=== PATIENT | female | born 1985 | race Caucasian/White ===

== ENCOUNTER 2020-04-09 10:30 | Outpatient (RCR) | payer OTHER, MEDICAID, SELFPAY ==
--- NOTE | 2020-02-20 21:42 | PT.OIE ---
Current Diagnoses Obesity, unspecified (02/20/20) Unspecified urinary incontinence (02/20/20) Visit Care Team Role Provider Type Julio Cesar Barr MD Primary Care Provider Non-Staff Specialty: Family Practice Address: [address] [place], [address] Email: Huma Sandhu MD Attending Provider Non-Staff Referring Provider Specialty: Urology Address: [address] [place], [address] Email: Physical Therapy Initial Evaluation PT-OP-A Visit Information Start: 02/17/20 19:06 Freq: Status: Active Protocol: Document 02/20/20 10:34 LRN (Rec: 02/20/20 11:22 LRN [id number]) Out-Patient Physical Therapy Visit Information Visit Information Visit Type Initial Evaluation Visit Start Time 10:34 Visit Stop Time 11:22 Total Visit Minutes 48 Visit Number 1 Evaluation Information Evaluation Date 02/20/20 Precautions Precautions COPD, asthma, Heart murmurs, 2nd the cervix came out. PT-OP-B Current Condition Start: 02/17/20 19:06 Freq: Status: Active Protocol: Document 02/20/20 10:34 LRN (Rec: 02/20/20 11:22 LRN [id number]) Current Condition History of Current Condition Onset Date 2 yrs ago Current Complaints Damp underwear daily, sometimes feels leak. Mainly with sneeze,cough History of Current Condition Noticed sometimes (few times a month) after urinating she there is a vibrating (pelvic floor) and then urine leakage. She had a pap smear and just with touching the PF she had started leaking. Pt blames partly from being overweight ( BMI is 37, note: >30 is obese) . Pt denies constipation. Developmental History Developmental History 4 children (ages 5, 7, 13, & 15 yr old). Started as an annoyance with coughing and sneezing, then noticed panties were always damp. Treatment Goals Patient/Caregiver Goals Pt goal with therapy is to eliminate urinary leakage, to increase the PF strength, and Independent self care program to progress to full continence if not able to achieve continence within rehab timeframe. Prior Functional Status Baseline Function- ADL's Independent Baseline Function- Mobility Independent Baseline Function- Other Urinary leakage only with coughing or sneezing. Current Functional Impairments (Reported) Functional Limitations- ADL's After voiding, coming to stand , can get loss of urine. Feels vibrating before leaking with sit to stand just after urinating (happens a few times a month). Functional Limitations- Other Leakage all day long. Personal Factors Other Personal Factors That May Effect 5'6, 235# = BMI of 37 (>30 is Therapy/Recovery Obese), Mother of 4 children ages 5 to 15. COPD, asthma, 2nd the cervix came out. PT-OP-C Subjective Start: 02/17/20 19:06 Freq: Status: Active Protocol: Document 02/20/20 10:34 LRN (Rec: 02/20/20 11:22 LRN [id number]) Patient Questionnaires Pelvic Pain and Urgency/Frequency Patient Symptom Scale Pelvic Pain Score 7 PT-OP-I Pelvic Floor Start: 02/17/20 19:06 Freq: Status: Active Protocol: Document 02/20/20 10:34 LRN (Rec: 02/20/20 11:22 LRN [id number]) Pelvic Floor Assessment Urine Leakage Size Large Leakage Cause Cough,Lifting,Sneeze Leaks Per Day Constant Voiding Frequency 5-10 times per day Nocturia 1 time at night Urine Pad Type Panty Liner Prolapse Cystocele Grade 2 Rectocele Grade 2 Prolapse Comments Supine: Light cough does not cause further descent of bladder/bowel. Contraction Ability Voluntary Contraction Moderate Manual Muscle Testing Left 3 Manual Muscle Testing Right 3 Manual Muscle Testing Anterior 1 Manual Muscle Testing Posterior 3 Muscle Endurance (Seconds) 6 Number of Quick Contractions In 10 5 Seconds Comments Pelvic Floor Comments PF contraction, substitutes with TA and mildly hip AD. PT-OP-K Range of Motion Start: 02/17/20 19:06 Freq: Status: Active Protocol: Document 02/20/20 10:34 LRN (Rec: 02/20/20 11:22 LRN [id number]) Lumbar Spine Range of Motion Lumbar Spine Active Degrees Testing Position Standing Flexion 90 Extension 15 Comments Trunk flex is with hip flex 85 deg's, starting position of sacrum is 30 deg's flexion. Trunk ext is 65 deg's, starting position of sacrum is 35 deg's flexion. Hip Goniometric Range of Motion Hip Right Passive Testing Position Supine Straight Leg Raise 90 Internal Rotation 40 External Rotation 75 Left Passive Testing Position Supine Straight Leg Raise 90 Internal Rotation 40 External Rotation 75 PT-OP-M Strength Start: 02/17/20 19:06 Freq: Status: Active Protocol: Document 02/20/20 10:34 LRN (Rec: 02/20/20 20:30 LRN [id number]) Trunk Strength Trunk Manual Muscle Testing Core Stabilization Pt unable to maintain core stability during hip MMT bilaterally. Hip Strength Hip Manual Muscle Testing Right Internal Rotation 3+ Fair+ Comments 5/5 except IR above Left Internal Rotation 3+ Fair+ Comments 5/5 except IR above PT-OP-Q Treatments Start: 02/17/20 19:06 Freq: Status: Active Protocol: Document 02/20/20 10:34 LRN (Rec: 02/20/20 20:30 LRN [id number]) Self-Care/Home Management Treatment Education Other Education Discussed results of evaluation and therapy treatments to come. Discussed unable to treat today due to insurance limits. Activities Self-Care/Home Management Activities Pt issued bladder diary with I /S on how to fill out. Pt issued Kegel handout with I /S to work on aggravators. PT-OP-T Assessment and Plan Start: 02/17/20 19:06 Freq: Status: Active Protocol: Document 02/20/20 10:34 LRN (Rec: 02/20/20 11:22 LRN [id number]) Physical Therapy Assessment Rehab Potential Rehabilitation Potential Good Evaluation Complexity Number of Personal Factors/Comorbidities 3 or More Number of Body Systems Impaired 3 Clinical Presentation at Evaluation Evolving Impairments Impairments Posture,ROM,Strength Goals Four Impairment Poor coordination of breathing with exercise and transfers. Short Term Goal (STG) Pt will be educated and demonstrate in proper diaphragmatic breathing, and with coordination of Roll in/ out exercises for PF strengthening. STG Duration 03/05/20 Assisted Goal (LTG) Pt will demonstrate proper breathing with functional activities (transfers, lifting ). LTG Duration 05/04/20 Three Impairment Poor coordination of PF contraction Short Term Goal (STG) Pt will be able to perform Quick Flick contraction of strength grade 3/5 without substitute muscle contraction (TA, hip AB, gluteals) in order to prevent urinary leakage with sneezing. STG Duration 04/02/20 Assisted Goal (LTG) Pt will be able to perform a Long Hold contraction with a proper PF lift with PF strength of 3/5 to prevent loss of continence with coughing. LTG Duration 05/04/20 Two Impairment Quick Flick PF weakness (3/5) Short Term Goal (STG) Pt will be able to maintain continence during sit to stand transfers. STG Duration 04/02/20 Assisted Goal (LTG) Increase PF strength to 4/5 of Quick Flicks LTG Duration 05/04/20 One Impairment Lacks appropriate self care HEP Assisted Goal (LTG) Independent with an ongoing self care HEP. Pt goal with therapy is to eliminate urinary leakage, to increase the PF strength, and Independent self care program to progress to full continence if not able to achieve continence within rehab timeframe. LTG Duration 05/04/20 Assessment Summary Assessment Pt presents with a cytocele and rectocele that doesn't extend past the hymen in supine. She demonstrates PF weakness and uses her abdominal muscles to assist with PF contraction. She has a history of urethrocele with her 2nd childbirth (13 yrs ago ). With a BMI of 37 (obese) and history of COPD and asthma , it is expected that she may have an extended rehabilitation program. I would recommend a referral be sent for a home PF biofeedback E-Stim unit (Pathway STM 10) to improve awareness of a proper PF contraction and for strengthening. The pt will benefit from skilled physical therapy for PF strengthening, posture training, and LE and core strengthening, ROM exercises (to improve hip IR), pt education, and placement on a self care HEP. Physical Therapy Plan Frequency and Duration Frequency of Treatment 1x/Week Plan of Care Start Date 02/20/20 Plan of Care End Date 05/04/20 Therapeutic Interventions Therapeutic Interventions Home Exercise Program,Joint Mobilizations,Manual Therapy, Neuromuscular Re-education, Patient/Caregiver Education, Self-Care/Home Management,Soft Tissue Mobilization, Therapeutic Exercises Modalities Biofeedback,Electric Stimulation Other Referrals/Consults Referrals/Consults Recommended Referral for a PF biofeedback E-Stim unit (Current Technology, Pathway STM 10) Next Visit Focus/Plan Next Note Type Treatment Note Next Visit Plan Review bladder diary, make recommendations as appropriate . EMG biofeedback assessment and progress to training for proper PF contraction, start breath work training, progression of PF (roll in/ outs) and core strengthening ex's on a wedge. HEP: hip IR stretch, sacral flexion.
--- NOTE | 2020-02-20 21:43 | PT.OPPOC ---
Physical, Occupational & Speech Therapy At [facility] Current Diagnoses Obesity, unspecified (02/20/20) Unspecified urinary incontinence (02/20/20) Visit Care Team Role Provider Type Julio Cesar Barr MD Primary Care Provider Non-Staff Specialty: Family Practice Address: [address] [place], [address] Email: Huma Sandhu MD Attending Provider Non-Staff Referring Provider Specialty: Urology Address: [address] [place], [address] Email: Plan Of Care PT-OP-T Assessment and Plan Start: 02/17/20 19:06 Freq: Status: Active Protocol: Document 02/20/20 10:34 LRN (Rec: 02/20/20 11:22 LRN [id number]) Physical Therapy Assessment Rehab Potential Rehabilitation Potential Good Evaluation Complexity Number of Personal Factors/Comorbidities 3 or More Number of Body Systems Impaired 3 Clinical Presentation at Evaluation Evolving Impairments Impairments Posture,ROM,Strength Goals Four Impairment Poor coordination of breathing with exercise and transfers. Short Term Goal (STG) Pt will be educated and demonstrate in proper diaphragmatic breathing, and with coordination of Roll in/ out exercises for PF strengthening. STG Duration 03/05/20 Skilled Nursing Goal (LTG) Pt will demonstrate proper breathing with functional activities (transfers, lifting ). LTG Duration 05/04/20 Three Impairment Poor coordination of PF contraction Short Term Goal (STG) Pt will be able to perform Quick Flick contraction of strength grade 3/5 without substitute muscle contraction (TA, hip AB, gluteals) in order to prevent urinary leakage with sneezing. STG Duration 04/02/20 Auto Body Technician Goal (LTG) Pt will be able to perform a Long Hold contraction with a proper PF lift with PF strength of 3/5 to prevent loss of continence with coughing. LTG Duration 05/04/20 Two Impairment Quick Flick PF weakness (3/5) Short Term Goal (STG) Pt will be able to maintain continence during sit to stand transfers. STG Duration 04/02/20 Skilled Nursing Goal (LTG) Increase PF strength to 4/5 of Quick Flicks LTG Duration 05/04/20 One Impairment Lacks appropriate self care HEP Skilled Nursing Goal (LTG) Independent with an ongoing self care HEP. Pt goal with therapy is to eliminate urinary leakage, to increase the PF strength, and Independent self care program to progress to full continence if not able to achieve continence within rehab timeframe. LTG Duration 05/04/20 Assessment Summary Assessment Pt presents with a cytocele and rectocele that doesn't extend past the hymen in supine. She demonstrates PF weakness and uses her abdominal muscles to assist with PF contraction. She has a history of urethrocele with her 2nd childbirth (13 yrs ago ). With a BMI of 37 (obese) and history of COPD and asthma , it is expected that she may have an extended rehabilitation program. I would recommend a referral be sent for a home PF biofeedback E-Stim unit (Pathway STM 10) to improve awareness of a proper PF contraction and for strengthening. The pt will benefit from skilled physical therapy for PF strengthening, posture training, and LE and core strengthening, ROM exercises (to improve hip IR), pt education, and placement on a self care HEP. Physical Therapy Plan Frequency and Duration Frequency of Treatment 1x/Week Plan of Care Start Date 02/20/20 Plan of Care End Date 05/04/20 Therapeutic Interventions Therapeutic Interventions Home Exercise Program,Joint Mobilizations,Manual Therapy, Neuromuscular Re-education, Patient/Caregiver Education, Self-Care/Home Management,Soft Tissue Mobilization, Therapeutic Exercises Modalities Biofeedback,Electric Stimulation Other Referrals/Consults Referrals/Consults Recommended Referral for a PF biofeedback E-Stim unit (Current Technology, Pathway STM 10) Next Visit Focus/Plan Next Note Type Treatment Note Next Visit Plan Review bladder diary, make recommendations as appropriate . EMG biofeedback assessment and progress to training for proper PF contraction, start breath work training, progression of PF (roll in/ outs) and core strengthening ex's on a wedge. HEP: hip IR stretch, sacral flexion. Plan of Care Dates Plan of Care Start Date 02/20/20 Plan of Care End Date 05/04/20 Electronically Signed by: Aurora Zhang, PT 02/20/20 [id number] Please Sign and Return: I have reviewed this Plan of Care and certify that the skilled therapy services above are required to meet the patient?s needs. Physician Signature Date Printed Name and Credentials Clinical Instructor Signature Printed Name and Credentials
--- NOTE | 2020-03-12 16:42 | PT.OTN ---
Current Diagnoses Obesity, unspecified (03/12/20) Unspecified urinary incontinence (03/12/20) Physical Therapy Treatment Note PT-OP-A Visit Information Start: 02/17/20 19:06 Freq: Status: Active Protocol: Document 03/12/20 10:32 LRN (Rec: 03/12/20 11:27 LRN [id number]) Out-Patient Physical Therapy Visit Information Visit Information Visit Type Treatment Note Visit Start Time 10:32 Visit Stop Time 11:20 Total Visit Minutes 48 Visit Number 2 Evaluation Information Evaluation Date 02/20/20 Precautions Precautions COPD, asthma, Heart murmurs, 2nd the cervix came out. PT-OP-B Current Condition Start: 02/17/20 19:06 Freq: Status: Active Protocol: Document 02/20/20 10:34 LRN (Rec: 02/20/20 11:22 LRN [id number]) Current Condition History of Current Condition Onset Date 2 yrs ago Current Complaints Damp underwear daily, sometimes feels leak. Mainly with sneeze,cough History of Current Condition Noticed sometimes (few times a month) after urinating she there is a vibrating (pelvic floor) and then urine leakage. She had a pap smear and just with touching the PF she had started leaking. Pt blames partly from being overweight ( BMI is 37, note: >30 is obese) . Pt denies constipation. Developmental History Developmental History 4 children (ages 5, 7, 13, & 15 yr old). Started as an annoyance with coughing and sneezing, then noticed panties were always damp. Treatment Goals Patient/Caregiver Goals Pt goal with therapy is to eliminate urinary leakage, to increase the PF strength, and Independent self care program to progress to full continence if not able to achieve continence within rehab timeframe. Prior Functional Status Baseline Function- ADL's Independent Baseline Function- Mobility Independent Baseline Function- Other Urinary leakage only with coughing or sneezing. Current Functional Impairments (Reported) Functional Limitations- ADL's After voiding, coming to stand , can get loss of urine. Feels vibrating before leaking with sit to stand just after urinating (happens a few times a month). Functional Limitations- Other Leakage all day long. Personal Factors Other Personal Factors That May Effect 5 235# = BMI of 37 (>30 is Therapy/Recovery Obese), Mother of 4 children ages 5 to 15. COPD, asthma, 2nd the cervix came out. PT-OP-C Subjective Start: 02/17/20 19:06 Freq: Status: Active Protocol: Document 03/12/20 10:32 LRN (Rec: 03/12/20 11:27 LRN [id number]) OP-PT Subjective Patient Comments Patient Comments Forgot her bladder diary. Noticed she urinates a lot in the morning, about every hour and urinates a lot (7-8 secs), light yellow urine. Throughout the day doesn't urinate much. Has been doing Kegel ex's. Is having trouble doing 10 times fast. PT-OP-I Pelvic Floor Start: 02/17/20 19:06 Freq: Status: Active Protocol: Document 03/12/20 10:32 LRN (Rec: 03/12/20 11:27 LRN [id number]) Pelvic Floor Assessment SEMG (uV) Baseline 4.1 Quick Contraction 16.4 10 Second Contraction 18.7 Recruitment Pattern Good Holding Fair Stability of Hold Fair Comments Pelvic Floor Comments Pt needed v. cuing to keep breathing and to isolate PF from TA. Pt with mask and knees on bolster. Ankles crossed during baseline reading initially with strength 4.1 microvolts (uV's) . Without ankles crossed strength was 4.0 uV's. Quick contractions 10 reps: Avg work 16.2 uV's Avg rest: 7 .6 uV's. 20 reps: Avg Work is 16.4 uV's, Avg Rests is 6. 7uV's. Long Hold (10 secs): After 10 reps: Avg work is 18.4 uV's, Avg Rest is 5.3 uV's. After 20 reps: Avg work (see above) Avg rest is 5.6 uV's. PT-OP-K Range of Motion Start: 02/17/20 19:06 Freq: Status: Active Protocol: Document 02/20/20 10:34 LRN (Rec: 02/20/20 11:22 LRN [id number]) Lumbar Spine Range of Motion Lumbar Spine Active Degrees Testing Position Standing Flexion 90 Extension 15 Comments Trunk flex is with hip flex 85 deg's, starting position of sacrum is 30 deg's flexion. Trunk ext is 65 deg's, starting position of sacrum is 35 deg's flexion. Hip Goniometric Range of Motion Hip Right Passive Testing Position Supine Straight Leg Raise 90 Internal Rotation 40 External Rotation 75 Left Passive Testing Position Supine Straight Leg Raise 90 Internal Rotation 40 External Rotation 75 PT-OP-M Strength Start: 02/17/20 19:06 Freq: Status: Active Protocol: Document 02/20/20 10:34 LRN (Rec: 02/20/20 20:30 LRN [id number]) Trunk Strength Trunk Manual Muscle Testing Core Stabilization Pt unable to maintain core stability during hip MMT bilaterally. Hip Strength Hip Manual Muscle Testing Right Internal Rotation 3+ Fair+ Comments 5/5 except IR above Left Internal Rotation 3+ Fair+ Comments 5/5 except IR above PT-OP-Q Treatments Start: 02/17/20 19:06 Freq: Status: Active Protocol: Document 03/12/20 10:32 LRN (Rec: 03/12/20 11:27 LRN [id number]) Therapeutic Exercises Supine Exercises Lateral Hip stretch Supine Exercise Name Lateral hip stretch Side bilateral Reps/Minutes 4' Comments Only able to obtain a light lat hip stretch moriah; therefore d/c'd for home Long Holds Supine Exercise Name 10 Long holding Reps/Minutes 10 contraction 10 rest x 20 Comments Knees on bolster. Constant v. cuing to prevent breath holding Quick Flicks Supine Exercise Name Quick Flicks strengthening with Biofeedback Reps/Minutes 1 contraction 2 rest x 20 Comments Knees on bolster, v. cuing for breathing during ex. Piriformis stretch Supine Exercise Name Pirformis stretch (knee to opposite shoulder) Side bilateral Reps/Minutes 60 x 1 each Comments Extra time taken to position for stretch Sitting Exercises Low back flex stretch Sitting Exercise Name Rounding back and hands moving between legs for more stretch Reps/Minutes 10 hold x 10 Comments Determined optimum positioning for stretch, starting in sup, moving to sit Therapeutic Activity Therapeutic Activity Sit to Stand Name Sit to stand with proper breathing and PF contraction Reps/Minutes 4x Self-Care/Home Management Treatment Education Other Education Educated pt in coordinated deep breathing with movement for lifting of the PF. Educated pt in proper sit<-> stand for hip hinging. Activities Self-Care/Home Management Activities Issued and reviewed HEP: Sitting LE roll in/out with T- Band and ball. Issued Lev 2 T-Band. Discussed results of EMG biofeed back strengthening and discussed pt trying to practice with proper breathing during strengthening exercise . PT-OP-T Assessment and Plan Start: 02/17/20 19:06 Freq: Status: Active Protocol: Document 03/12/20 10:32 LRN (Rec: 03/12/20 11:27 LRN [id number]) Physical Therapy Assessment Goals Four Impairment Poor coordination of breathing with exercise and transfers. Short Term Goal (STG) Pt will be educated and demonstrate in proper diaphragmatic breathing, and with coordination of Roll in/ out exercises for PF strengthening. STG Duration 03/05/20 Slat Twister Goal (LTG) Pt will demonstrate proper breathing with functional activities (transfers, lifting ). LTG Duration 05/04/20 Three Impairment Poor coordination of PF contraction Short Term Goal (STG) Pt will be able to perform Quick Flick contraction of strength grade 3/5 without substitute muscle contraction (TA, hip AB, gluteals) in order to prevent urinary leakage with sneezing. STG Duration 04/02/20 Slat Twister Goal (LTG) Pt will be able to perform a Long Hold contraction with a proper PF lift with PF strength of 3/5 to prevent loss of continence with coughing. LTG Duration 05/04/20 Two Impairment Quick Flick PF weakness (3/5) Short Term Goal (STG) Pt will be able to maintain continence during sit to stand transfers. (03/12/20: Has only leaked once with sit to stand since last session). STG Duration 04/02/20 (03/12/20: Improved) Slat Twister Goal (LTG) Increase PF strength to 4/5 of Quick Flicks LTG Duration 05/04/20 One Impairment Lacks appropriate self care HEP Slat Twister Goal (LTG) Independent with an ongoing self care HEP. Pt goal with therapy is to eliminate urinary leakage, to increase the PF strength, and Independent self care program to progress to full continence if not able to achieve continence within rehab timeframe. LTG Duration 05/04/20 Progress Towards Goals Progress Comments Less urinary leakage with sit to stand. Assessment Summary Assessment Pt is having less urinary leakage with sit to stand. She appears to have a fair understanding of proper breathing for transfers to prevent excessive stress on the organs with transfers. Pt forgot her bladder diary, so unable to assess fluid intake/ output dysfunctions. Pt PF contractions are strong, but resting tone is elevated. Training needed to decrease resting tone, and for proper PF contraction coordination. Physical Therapy Plan Frequency and Duration Frequency of Treatment 1x/Week Plan of Care Start Date 02/20/20 Plan of Care End Date 05/04/20 Next Visit Focus/Plan Next Note Type Treatment Note Next Visit Plan Review bladder diary, make recommendations as appropriate . Review transfers for proper breathing and add to LE roll in/out exercise (goal 4). EMG biofeedback training for proper PF contraction and ms relaxation after contraction, progression of PF (roll in/ outs) and core strengthening ex's on a wedge if back pain is controlled. Add HEP: hip IR stretch, sacral flexion.
--- NOTE | 2020-04-09 16:35 | PT.OTN ---
Current Diagnoses Obesity, unspecified (04/09/20) Unspecified urinary incontinence (04/09/20) Physical Therapy Treatment Note PT-OP-A Visit Information Start: 02/17/20 19:06 Freq: Status: Active Protocol: Document 04/09/20 10:37 LRN (Rec: 04/09/20 11:18 LRN [id number]) Out-Patient Physical Therapy Visit Information Visit Information Visit Type Treatment Note Visit Start Time 10:37 Visit Stop Time 11:18 Total Visit Minutes 41 Visit Number 3 Evaluation Information Evaluation Date 02/20/20 Precautions Precautions COPD, asthma, Heart murmurs, 2nd the cervix came out. PT-OP-B Current Condition Start: 02/17/20 19:06 Freq: Status: Active Protocol: Document 02/20/20 10:34 LRN (Rec: 02/20/20 11:22 LRN [id number]) Current Condition History of Current Condition Onset Date 2 yrs ago Current Complaints Damp underwear daily, sometimes feels leak. Mainly with sneeze,cough History of Current Condition Noticed sometimes (few times a month) after urinating she there is a vibrating (pelvic floor) and then urine leakage. She had a pap smear and just with touching the PF she had started leaking. Pt blames partly from being overweight ( BMI is 37, note: >30 is obese) . Pt denies constipation. Developmental History Developmental History 4 children (ages 5, 7, 13, & 15 yr old). Started as an annoyance with coughing and sneezing, then noticed panties were always damp. Treatment Goals Patient/Caregiver Goals Pt goal with therapy is to eliminate urinary leakage, to increase the PF strength, and Independent self care program to progress to full continence if not able to achieve continence within rehab timeframe. Prior Functional Status Baseline Function- ADL's Independent Baseline Function- Mobility Independent Baseline Function- Other Urinary leakage only with coughing or sneezing. Current Functional Impairments (Reported) Functional Limitations- ADL's After voiding, coming to stand , can get loss of urine. Feels vibrating before leaking with sit to stand just after urinating (happens a few times a month). Functional Limitations- Other Leakage all day long. Personal Factors Other Personal Factors That May Effect 5 235# = BMI of 37 (>30 is Therapy/Recovery Obese), Mother of 4 children ages 5 to 15. COPD, asthma, 2nd the cervix came out. PT-OP-C Subjective Start: 02/17/20 19:06 Freq: Status: Active Protocol: Document 04/09/20 10:37 LRN (Rec: 04/09/20 11:18 LRN [id number]) OP-PT Subjective Patient Comments Patient Comments Did bladder diary but daughter moved it and she couldn't find it. States when she relaxes she leaks. States her biggest problem is when she stands she leaks, especially after voiding. PT-OP-I Pelvic Floor Start: 02/17/20 19:06 Freq: Status: Active Protocol: Document 03/12/20 10:32 LRN (Rec: 03/12/20 11:27 LRN [id number]) Pelvic Floor Assessment SEMG (uV) Baseline 4.1 Quick Contraction 16.4 10 Second Contraction 18.7 Recruitment Pattern Good Holding Fair Stability of Hold Fair Comments Pelvic Floor Comments Pt needed v. cuing to keep breathing and to isolate PF from TA. Pt with mask and knees on bolster. Ankles crossed during baseline reading initially with strength 4.1 microvolts (uV's) . Without ankles crossed strength was 4.0 uV's. Quick contractions 10 reps: Avg work 16.2 uV's Avg rest: 7 .6 uV's. 20 reps: Avg Work is 16.4 uV's, Avg Rests is 6. 7uV's. Long Hold (10 secs): After 10 reps: Avg work is 18.4 uV's, Avg Rest is 5.3 uV's. After 20 reps: Avg work (see above) Avg rest is 5.6 uV's. PT-OP-K Range of Motion Start: 02/17/20 19:06 Freq: Status: Active Protocol: Document 02/20/20 10:34 LRN (Rec: 02/20/20 11:22 LRN [id number]) Lumbar Spine Range of Motion Lumbar Spine Active Degrees Testing Position Standing Flexion 90 Extension 15 Comments Trunk flex is with hip flex 85 deg's, starting position of sacrum is 30 deg's flexion. Trunk ext is 65 deg's, starting position of sacrum is 35 deg's flexion. Hip Goniometric Range of Motion Hip Right Passive Testing Position Supine Straight Leg Raise 90 Internal Rotation 40 External Rotation 75 Left Passive Testing Position Supine Straight Leg Raise 90 Internal Rotation 40 External Rotation 75 PT-OP-M Strength Start: 02/17/20 19:06 Freq: Status: Active Protocol: Document 02/20/20 10:34 LRN (Rec: 02/20/20 20:30 LRN [id number]) Trunk Strength Trunk Manual Muscle Testing Core Stabilization Pt unable to maintain core stability during hip MMT bilaterally. Hip Strength Hip Manual Muscle Testing Right Internal Rotation 3+ Fair+ Comments 5/5 except IR above Left Internal Rotation 3+ Fair+ Comments 5/5 except IR above PT-OP-Q Treatments Start: 02/17/20 19:06 Freq: Status: Active Protocol: Document 04/09/20 10:37 LRN (Rec: 04/09/20 16:33 LRN [id number]) Therapeutic Exercises Supine Exercises PF relaxation Supine Exercise Name EMG biofeedback for PF relaxation. Long Holds Supine Exercise Name 10 Long holding Reps/Minutes 10 contraction 10 rest x 10 Comments Knees on bolster, v.cuing for 6 breaths. Quick Flicks Supine Exercise Name Quick Flicks strengthening with Biofeedback Reps/Minutes 1 contraction 2 rest x 20 Comments Knees on bolster, v. cuing for breathing during ex. Self-Care/Home Management Treatment Education Patient Education Body Mechanics Other Education Educated pt in proper general vulvar care with review of handout addressing genital hygiene, clothing/laundry, physical exercise, every living. Discussed at length pelvic and organ placement anatomy with changes that occur with changes in organ positioning. Activities Self-Care/Home Management Activities Recommendations made regarding voiding positioning & post voiding methods to reduce urine in urethra. PT-OP-T Assessment and Plan Start: 02/17/20 19:06 Freq: Status: Active Protocol: Document 04/09/20 10:37 LRN (Rec: 04/09/20 11:18 LRN [id number]) Physical Therapy Assessment Goals Four Impairment Poor coordination of breathing with exercise and transfers. Short Term Goal (STG) Pt will be educated and demonstrate in proper diaphragmatic breathing, and with coordination of Roll in/ out exercises for PF strengthening. STG Duration 03/05/20 (04/09/20: MET GOAL) Desk Clerk Goal (LTG) Pt will demonstrate proper breathing with functional activities (transfers, lifting ). LTG Duration 05/04/20 (04/09/20: MET GOAL) Three Impairment Poor coordination of PF contraction Short Term Goal (STG) Pt will be able to perform Quick Flick contraction of strength grade 3/5 without substitute muscle contraction (TA, hip AB, gluteals) in order to prevent urinary leakage with sneezing. STG Duration 04/02/20 Shelter Goal (LTG) Pt will be able to perform a Long Hold contraction with a proper PF lift with PF strength of 3/5 to prevent loss of continence with coughing. LTG Duration 05/04/20 Two Impairment Quick Flick PF weakness (3/5) Short Term Goal (STG) Pt will be able to maintain continence during sit to stand transfers. (03/12/20: Has only leaked once with sit to stand since last session). STG Duration 04/02/20 (03/12/20: Improved) Desk Clerk Goal (LTG) Increase PF strength to 4/5 of Quick Flicks LTG Duration 05/04/20 One Impairment Lacks appropriate self care HEP Desk Clerk Goal (LTG) Independent with an ongoing self care HEP. Pt goal with therapy is to eliminate urinary leakage, to increase the PF strength, and Independent self care program to progress to full continence if not able to achieve continence within rehab timeframe. LTG Duration 05/04/20 Progress Towards Goals Progress Comments Much improved awareness of reasons for urinary leakage after extra time taken for pt education. Pt appears more committed to the rehab program after discussion and education. Assessment Summary Assessment Goal #4 MET. Pt demonstrates good knowledge of proper breathing pattern for transfers and functional activities of transfers and lifting. Per EMG biofeedback the pt has a 2-3 mV resting tone and sometimes higher when she feels she is at a complete rest and she feels like she will leak a little urine. Pt is probably retaining urine in her urethra and upon standing and straightening she leaks. Pt tends to wear restrictive banding at waist and per her report she leans forward to urinate to help get urine out. Pt needs strengthening of her PF due to cytocele, rectocele and uterine prolapse . Physical Therapy Plan Frequency and Duration Frequency of Treatment 1x/Week Plan of Care Start Date 02/20/20 Plan of Care End Date 05/04/20 Next Visit Focus/Plan Next Note Type Treatment Note Next Visit Plan Review bladder diary if pt bring in & make recommendations as appropriate . EMG biofeedback training w/ blue pad underneath, for proper PF contraction and ms relaxation after contraction, progression of PF (roll in/ outs) and core strengthening ex's on a wedge if back pain is controlled. Add HEP: hip IR stretch, sacral flexion and core stabilization.
--- NOTE | 2020-04-16 11:46 | PT.OPDS ---
Current Diagnoses Obesity, unspecified (04/09/20) Unspecified urinary incontinence (04/09/20) Visit Care Team Role Provider Type Julio Cesar Barr MD Primary Care Provider Non-Staff Specialty: Family Practice Address: [address] [place], [address] Email: Huma Sandhu MD Attending Provider Non-Staff Referring Provider Specialty: Urology Address: [address] [place], [address] Email: Visit Number Visit Number 3 Discharge Summary PT-OP-B Current Condition Start: 02/17/20 19:06 Freq: Status: Active Protocol: Document 02/20/20 10:34 LRN (Rec: 02/20/20 11:22 LRN [id number]) Current Condition History of Current Condition Onset Date 2 yrs ago Current Complaints Damp underwear daily, sometimes feels leak. Mainly with sneeze,cough History of Current Condition Noticed sometimes (few times a month) after urinating she there is a vibrating (pelvic floor) and then urine leakage. She had a pap smear and just with touching the PF she had started leaking. Pt blames partly from being overweight ( BMI is 37, note: >30 is obese) . Pt denies constipation. Developmental History Developmental History 4 children (ages 5, 7, 13, & 15 yr old). Started as an annoyance with coughing and sneezing, then noticed panties were always damp. Treatment Goals Patient/Caregiver Goals Pt goal with therapy is to eliminate urinary leakage, to increase the PF strength, and Independent self care program to progress to full continence if not able to achieve continence within rehab timeframe. Prior Functional Status Baseline Function- ADL's Independent Baseline Function- Mobility Independent Baseline Function- Other Urinary leakage only with coughing or sneezing. Current Functional Impairments (Reported) Functional Limitations- ADL's After voiding, coming to stand , can get loss of urine. Feels vibrating before leaking with sit to stand just after urinating (happens a few times a month). Functional Limitations- Other Leakage all day long. Personal Factors Other Personal Factors That May Effect 5'6, 235# = BMI of 37 (>30 is Therapy/Recovery Obese), Mother of 4 children ages 5 to 15. COPD, asthma, 2nd the cervix came out. PT-OP-C Subjective Start: 02/17/20 19:06 Freq: Status: Active Protocol: Document 04/09/20 10:37 LRN (Rec: 04/09/20 11:18 LRN [id number]) OP-PT Subjective Patient Comments Patient Comments Did bladder diary but daughter moved it and she couldn't find it. States when she relaxes she leaks. States her biggest problem is when she stands she leaks, especially after voiding. PT-OP-I Pelvic Floor Start: 02/17/20 19:06 Freq: Status: Active Protocol: Document 03/12/20 10:32 LRN (Rec: 03/12/20 11:27 LRN [id number]) Pelvic Floor Assessment SEMG (uV) Baseline 4.1 Quick Contraction 16.4 10 Second Contraction 18.7 Recruitment Pattern Good Holding Fair Stability of Hold Fair Comments Pelvic Floor Comments Pt needed v. cuing to keep breathing and to isolate PF from TA. Pt with mask and knees on bolster. Ankles crossed during baseline reading initially with strength 4.1 microvolts (uV's) . Without ankles crossed strength was 4.0 uV's. Quick contractions 10 reps: Avg work 16.2 uV's Avg rest: 7 .6 uV's. 20 reps: Avg Work is 16.4 uV's, Avg Rests is 6. 7uV's. Long Hold (10 secs): After 10 reps: Avg work is 18.4 uV's, Avg Rest is 5.3 uV's. After 20 reps: Avg work (see above) Avg rest is 5.6 uV's. PT-OP-K Range of Motion Start: 02/17/20 19:06 Freq: Status: Active Protocol: Document 02/20/20 10:34 LRN (Rec: 02/20/20 11:22 LRN [id number]) Lumbar Spine Range of Motion Lumbar Spine Active Degrees Testing Position Standing Flexion 90 Extension 15 Comments Trunk flex is with hip flex 85 deg's, starting position of sacrum is 30 deg's flexion. Trunk ext is 65 deg's, starting position of sacrum is 35 deg's flexion. Hip Goniometric Range of Motion Hip Right Passive Testing Position Supine Straight Leg Raise 90 Internal Rotation 40 External Rotation 75 Left Passive Testing Position Supine Straight Leg Raise 90 Internal Rotation 40 External Rotation 75 PT-OP-M Strength Start: 02/17/20 19:06 Freq: Status: Active Protocol: Document 02/20/20 10:34 LRN (Rec: 02/20/20 20:30 LRN [id number]) Trunk Strength Trunk Manual Muscle Testing Core Stabilization Pt unable to maintain core stability during hip MMT bilaterally. Hip Strength Hip Manual Muscle Testing Right Internal Rotation 3+ Fair+ Comments 5/5 except IR above Left Internal Rotation 3+ Fair+ Comments 5/5 except IR above PT-OP-T Assessment and Plan Start: 02/17/20 19:06 Freq: Status: Active Protocol: Document 04/16/20 11:41 LRN (Rec: 04/16/20 11:45 LRN [id number]) Physical Therapy Assessment Goals Four Impairment Poor coordination of breathing with exercise and transfers. Short Term Goal (STG) Pt will be educated and demonstrate in proper diaphragmatic breathing, and with coordination of Roll in/ out exercises for PF strengthening. STG Duration 03/05/20 (04/09/20: MET GOAL) Snf Goal (LTG) Pt will demonstrate proper breathing with functional activities (transfers, lifting ). LTG Duration 05/04/20 (04/09/20: MET GOAL) Three Impairment Poor coordination of PF contraction Short Term Goal (STG) Pt will be able to perform Quick Flick contraction of strength grade 3/5 without substitute muscle contraction (TA, hip AB, gluteals) in order to prevent urinary leakage with sneezing. STG Duration 04/02/20 (04/16/20: Pt unavailable for final assessment) Scraper Meat Goal (LTG) Pt will be able to perform a Long Hold contraction with a proper PF lift with PF strength of 3/5 to prevent loss of continence with coughing. LTG Duration 05/04/20 (04/16/20: Pt unavailable for final assessment) Two Impairment Quick Flick PF weakness (3/5) Short Term Goal (STG) Pt will be able to maintain continence during sit to stand transfers. (03/12/20: Has only leaked once with sit to stand since last session). STG Duration 04/02/20 (03/12/20: Improved) Scraper Meat Goal (LTG) Increase PF strength to 4/5 of Quick Flicks LTG Duration 05/04/20 (04/16/20: Pt unavailable for final assessment) One Impairment Lacks appropriate self care HEP Scraper Meat Goal (LTG) Independent with an ongoing self care HEP. Pt goal with therapy is to eliminate urinary leakage, to increase the PF strength, and Independent self care program to progress to full continence if not able to achieve continence within rehab timeframe. LTG Duration 05/04/20 (04/16/20: Pt unavailable for final assessment) Assessment Summary Assessment Pt discharged by phone and was not available for final assessment. No further therapy is planned but the pt would benefit from continued therapy for her PF rehab program. Pt is being discharged from physical therapy today. Physical Therapy Plan Discharge Physical Therapy Discharge Reasons Patient Request Discharge Comments Message received that pt cancelled all her remaining appointment due to a family issue and requested discharge; therefore the pt is being discharged early from her PT rehab. Thank you for your referral.
== END 2020-04-20 08:54 ==
LOC: PHYS 10:30
PROVIDERS: PCP Family Medicine; Referring Provider Urology; Visit Provider Urology
DX: R32 Unspecified urinary incontinence (principal); E66.9 Obesity, unspecified
CPT/HCPCS: 97110; 97162; 97535

== ENCOUNTER 2021-09-14 20:05 | Emergency (ER) | payer OTHER, MEDICAID, SELFPAY ==
[2021-09-14] VITALS (12 sets, daily range): BP systolic 150; BP diastolic 76–96; PULSE 102–126; RESP 28; TEMP 36.8; O2SAT 92–100; BMI 35.5
--- NOTE | 2021-09-14 20:09 | DI.RAD.S_ITS ---
PROCEDURE: XR CHEST 2V INDICATIONS: SOB, fever TECHNIQUE: 2 views of the chest were acquired. COMPARISON: None. FINDINGS: Surgical changes and devices: None. Lungs and pleura: Lungs are clear. No pleural effusions or pneumothorax. Mediastinum: Mediastinal contours are normal. Heart size is normal. Bones and chest wall: No suspicious bony abnormalities. Soft tissues appear unremarkable. IMPRESSION: No evidence acute pulmonary process. Dictated by: Nehemiah Chaudhary M.D. on 09/14/2021 at 20:46 Approved by: Nehemiah Chaudhary M.D. on 09/14/2021 at 20:46
--- NOTE | 2021-09-14 20:12 | ED.SOB ---
HPI - SOB/Dyspnea General Chief Complaint: Shortness of Breath/Dyspnea Stated Complaint: sob/asthma attack Time Seen by Provider: 09/14/21 20:09 Source: patient Mode of arrival: Ambulatory History of Present Illness HPI Narrative: 36-year-old female smoker with history of asthma and COPD presents with significant other and a chief complaint of significant shortness of breath, wheezing, cough and low-grade fever over the course of the day. She is not dizzy nor weak or lightheaded. She denies any nausea, vomiting or diarrhea. She states she has been using her albuterol inhaler at home (without a spacer) and not much relief. She has not used oral steroids in quite some time. Patient is not vaccinated against COVID but has had COVID infection previously Related Data Previous Rx's Medication Instructions Recorded doxycycline hyclate 100 mg tablet 100 mg PO BID #20 tab 09/15/21 prednisone 10 mg tablet See Rx Instructions .ROUTE 09/15/21 .COMPLEX #30 tab Allergies Allergy/AdvReac Type Severity Reaction Status Date / Time Ipecac Syrup Allergy Unknown Uncoded 09/14/21 20:10 Review of Systems Review of Systems Narrative: GENERAL: See HPI. HEENT: See HPI RESPIRATORY: See HPI CARDIOVASCULAR: Denies chest pain, palpitations, orthopnea, edema, GASTROINTESTINAL: Denies nausea, vomiting, abdominal pain, diarrhea, constipation, melena. : Denies dysuria, frequency, incontinence, hematuria, urinary retention. MUSCULOSKELETAL: denies weakness, joint pain, or bony pain SKIN: Denies rash, skin lesions, or other NEUROLOGIC: Denies weakness, headache, numbness, change in speech, confusion, seizures, incoordination. PSYCHIATRIC: No concerning psychosocial issues. 12 point review of systems is negative except for those stated above Patient History Substance Use Type: marijuana Exam Narrative Exam Narrative: GENERAL: [36] year old patient appears stated age. Well-developed patient, in obvious respiratory distress, increased work of breathing HEAD: Atraumatic. Normocephalic. EYES: Pupils equal round and reactive. Extraocular motions intact. No scleral icterus. No injection or drainage. ENT: Nose without bleeding, purulent drainage. Throat without erythema, tonsillar hypertrophy or exudate. Airway patent. NECK: Trachea midline. Non tender CARDIOVASCULAR: Regular rate and rhythm without murmurs, gallops, or rubs. RESPIRATORY: Prolonged expiratory phase, increased work of breathing with use of accessory muscles, inspiratory and expiratory wheeze, tight in the bases GASTROINTESTINAL: Abdomen soft, non-tender, nondistended. EXTREMITIES: No edema or joint tenderness. BACK: Nontender without deformity or crepitance. No flank tenderness. NEURO: AOx3. SKIN: No rash or erythema of visible areas Initial Vital Signs Initial Vital Signs: Vital Signs Temperature 98.3 F 09/14/21 20:10 Pulse Rate 102 H 09/14/21 20:10 Respiratory Rate 28 H 09/14/21 20:10 Blood Pressure 150/96 H 09/14/21 20:10 Pulse Oximetry 92 09/14/21 20:10 Course Orders Ordered: ED Orders 09/14/21 20:07 COVID19 -Nasal swab/Pre-Proc Stat 09/14/21 20:09 Chest [XR chest 2V] Stat 09/14/21 21:06 RT Consult Eval and Treat NOW Discontinued Medications Albuterol (Albuterol Hfa Mdi 60 Puff/8 Gm Inhaler) 2 puff INH NOW ONE Stop: 09/14/21 20:14 Last Admin: 09/14/21 20:20 Dose: Not Given Documented by: JUAN RAMON Albuterol (Albuterol Hfa Prepack) 1 box MISC SEEINSTR ONE Stop: 09/14/21 20:17 Last Admin: 09/14/21 20:18 Dose: 1 box Documented by: CECI Albuterol (Albuterol 2.5 Mg/3 Ml Neb (Adult)) 5 mg INH Q20M AUBRIE Stop: 09/14/21 21:56 Last Admin: 09/14/21 22:06 Dose: Not Given Documented by: [email or web address] Admin: 09/14/21 21:47 Dose: 5 mg Documented by: [email or web address] Albuterol (Albuterol 2.5 Mg/3 Ml Neb (Adult)) 20 mg INH NOW ONE Stop: 09/14/21 22:08 Last Admin: 09/14/21 22:25 Dose: 20 mg Documented by: [email or web address] Albuterol/Ipratropium (Albuterol/Ipratropium 3 Ml Ampul) 3 ml INH NOW ONE Stop: 09/14/21 20:35 Last Admin: 09/14/21 20:59 Dose: 3 ml Documented by: EDITH Magnesium Sulfate (Magnesium Sulfate) 2 gm in 50 mls @ 50 mls/hr IV NOW ONE Stop: 09/15/21 01:02 Last Infusion: 09/15/21 00:53 Dose: 0 mls/hr Documented by: EDITH Cosigned by: NASRA Admin: 09/15/21 00:09 Dose: 150 mls/hr Documented by: EDITH Cosigned by: NASRA Prednisone (Prednisone 20 Mg Tablet) 40 mg PO NOW ONE Stop: 09/14/21 20:10 Last Admin: 09/14/21 20:14 Dose: 40 mg Documented by: EDITH Reevaluation(s) Reevaluation #1: Patient has significant improvement in symptoms after the above-stated therapies. She has mild expiratory wheeze without hypoxemia. She is able to ambulate to the department and speak in full sentences. She has been given return precautions and questions have been answered to her apparent satisfaction. Vital Signs Vital signs: Vital Signs - 8 hr 09/14/21 20:10 09/14/21 20:18 09/14/21 20:30 Temperature 98.3 F Pulse Rate 102 H 106 H Respiratory Rate 28 H Blood Pressure 150/96 H Pulse Oximetry 92 100 95 09/14/21 21:00 09/14/21 21:30 09/14/21 21:47 Temperature Pulse Rate 104 H 109 H 109 H Respiratory Rate 28 H Blood Pressure Pulse Oximetry 94 95 95 09/14/21 22:00 09/14/21 22:25 09/14/21 22:30 Temperature Pulse Rate 118 H 102 H 112 H Respiratory Rate 28 H Blood Pressure Pulse Oximetry 93 98 09/14/21 23:00 09/14/21 23:30 09/14/21 23:48 Temperature Pulse Rate 118 H 126 H Respiratory Rate Blood Pressure 150/76 H Pulse Oximetry 98 97 09/15/21 00:07 09/15/21 00:30 09/15/21 01:00 Temperature Pulse Rate 122 H 120 H 110 H Respiratory Rate Blood Pressure Pulse Oximetry 94 93 93 09/15/21 01:10 Temperature Pulse Rate 113 H Respiratory Rate 20 Blood Pressure 112/58 L Pulse Oximetry 93 MDM - SOB/Dyspnea Lab Data Labs: Lab Results 09/14/21 Range/Units 20:07 SARS-CoV-2 (PCR) Negative (Negative) Discharge Plan Departure Patient Disposition: Home Clinical Impression: Asthma with exacerbation, Atypical pneumonia Instructions: Asthma -- Adult, DI for Atypical Pneumonia Activity Restrictions/Additional Instructions: *You have been diagnosed with [atypical pneumonia and asthma exacerbation *What to do: *Please continue to take your regular medications as directed. [x ] New medication prescriptions sent to your pharmacy: [[facility]] [ ] New medication written as a paper prescription [ ] No new medications given *Please follow up with your primary care provider in 2-3 days, call for an appointment. Let them know you were seen in the Emergency Department and that we ask that you be seen in follow up. We will electronically transmit a record of today's note if your PCP is in our system *If you do not have a primary care provider please contact the [facility] Resource line at [phone]. They will ask some questions about your medical history and help get you set up with a doctor in the community. *Return to Emergency Department if you should have any new, worsening or concerning symptoms, such as [fever greater than 101 F, shaking chills, worsening pain, persistent vomiting or other bothersome symptoms] Prescriptions: New doxycycline hyclate 100 mg tablet 100 mg PO BID Qty: 20 0RF prednisone 10 mg tablet See Rx Instructions .ROUTE .COMPLEX Qty: 30 0RF Rx Instructions: Day 1,2,3: 40mg PO Daily Day 4,5,6: 30mg PO Daily Day 7,8,9: 20mg PO Daily Day 10,11,12: 10mg PO Daily #30 Referrals: Julio Cesar Barr MD [Primary Care Provider] -
[2021-09-14] MEDS: predniSONE 20 MG TABLET 40 MG PO (20:14)
[2021-09-14] MEDS: ALBUTEROL HFA PREPACK 1 BOX MISC (20:18)
--- NOTE | 2021-09-14 20:19 | PC.NURSE ---
pt has been using her inhaler without relief, audible inspiratory and expiratory wheezing noted, pt speaking in short sentences
[2021-09-14 20:33] LABS: COVID19 -Nasal RAPID Negative (Negative)
[2021-09-14] MEDS: ALBUTEROL/IPRATROPIUM 3 ML AMPUL INH (20:59)
[2021-09-14] MEDS: ALBUTEROL 2.5 MG/3 ML NEB (ADULT) 5 MG INH (21:47)
[2021-09-14] MEDS: ALBUTEROL 2.5 MG/3 ML NEB (ADULT) 20 MG INH (22:25)
--- NOTE | 2021-09-14 23:47 | PC.NURSE ---
pt states she is feeling better since the last tx
[2021-09-15 00:07] VITALS: PULSE 122; O2SAT 94
[2021-09-15] MEDS: MAGNESIUM SULFATE 2 GM/50 ML PIGGYBACK IV (00:09)
[2021-09-15 00:30] VITALS: PULSE 120; O2SAT 93
[2021-09-15 01:00] VITALS: PULSE 110; O2SAT 93
[2021-09-15 01:10] VITALS: BP 112/58; PULSE 107; PULSE 113; RESP 20; O2SAT 93
== END 2021-09-15 01:15 | disposition home or self-care (01) ==
PROVIDERS: Emergency Provider Emergency Medicine; PCP Family Medicine
DX: J45.901 Unspecified asthma with (acute) exacerbation (principal); J18.9 Pneumonia, unspecified organism; F17.200 Nicotine dependence, unspecified, uncomplicated; Z20.822 Contact with and (suspected) exposure to COVID-19
CPT/HCPCS: 71046; 87635; 94150; 94640; 96365; 99284; C9803; A9270; J3475; J7613